=== PATIENT | male | born 1955 | race Caucasian/White ===

== ENCOUNTER 2016-12-25 11:00 | Emergency (ER) ==
[2016-12-25] MEDS ORDERED: PHENERGAN IV ONE (11:22)
[2016-12-25] MEDS ORDERED: SODIUM CHLORIDE 0.9% INJ ONE (11:22)
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
[2016-12-25 11:44] LABS: MANUAL DIFF NEEDED? NO
[2016-12-25 11:46] LABS: BASO% 0.1 % (0.0-0.8); EOS# 0.05 X1000 (0.0-0.7); EOS% 0.4 % (0.0-10.0); HEMATOCRIT 42.9 % (42.0-52.0); HEMOGLOBIN 14.7 g/dL (14.0-18.0); IMM GRAN# 0.04 X1000 (0.0-0.04); IMM GRAN% 0.3 % (0.0-0.5); LYMPH# 1.26 X1000 (1.2-3.4); LYMPH% 10.3 % (20.5-51.1); MCH 29.1 PG (27-31); MCHC 34.3 g/dL (33-37); MCV 84.8 FL (81-99); MONO# 0.71 X1000 (0.11-0.59); MONO% 5.8 % (1.7-9.3); MPV 9.1 FL (7.4-10.4); NEUT% 83.1 % (42.2-75.2); PLT 262 X1000 (130-400); RBC 5.06 XMIL (4.7-6.1)
[2016-12-25 12:11] LABS: AGAP 11; ALKALINE PHOSPHATASE 56 U/L (32-122); BUN 8 mg/dL (8-22); CALCIUM 9.1 mg/dL (8.8-10.2); CHLORIDE 104 mmol/L (98-107); CK PROFILE 51 U/L (24-204); COSMO 281; GOT 16 U/L (10-34); GPT 14 U/L (10-44); POTASSIUM 3.6 mmol/L (3.5-5.1); SODIUM 140 mmol/L (136-145); TCO2 25 mmol/L (25-35); TOTAL PROTEIN 6.6 g/dL (6.3-8.3)
[2016-12-25] MEDS ORDERED: TYLENOL PO ONE (12:58)
--- NOTE | 2016-12-25 12:58 | EKG Report ---
Test Performed on : 12/25/2016 11:40:11 AM Test Reason : emboli Blood Pressure : / mmHG Vent. Rate : 103 BPM Atrial Rate : 103 BPM P-R Int : 192 ms QRS Dur : 086 ms QT Int : 372 ms P-R-T Axes : 058 -63 065 degrees QTc Int : 487 ms Sinus tachycardia. Possible Left atrial enlargement Left axis deviation Septal infarct (cited on or before 16-DEC-2016) Abnormal ECG When compared with ECG of 16-DEC-2016 09:24, Questionable change in initial forces of Septal leads Unconfirmed Result
--- NOTE | 2016-12-25 13:33 | Diag Imaging Result Document ---
PROCEDURE NAME: FLAT/UPRIGHT ABD/1 VIEW CHEST - 12/25/2016 ABDOMINAL SERIES: FINDINGS: There is gas visible in nondistended small bowel. There is gas and retained fecal debris visible in mostly nondistended colon. There is no free air identified. Upright chest compared 12/16/2016 and shows within normal limits heart size. There is transvenous cardiac pacemaker again seen. There is residual or recurrent mild prominence of left infrahilar markings. There is no pleural effusion or pneumothorax seen. IMPRESSION: 1. Nonspecific bowel gas pattern. 2. Mild prominence of left infrahilar markings.
[2016-12-25 14:25] LABS: URINE SOURCE VOIDED
[2016-12-25 14:33] LABS: BILIRUBIN URINE NEGATIVE (NEGATIVE); BLOOD URINE NEGATIVE (NEGATIVE); CLARITY CLEAR (CLEAR); COLOR YELLOW; GLUCOSE URINE NEGATIVE (NEGATIVE); LEUKOCYTES URINE TRACE (NEGATIVE); NITRITE URINE NEGATIVE (NEGATIVE); PH URINE 6.5; PROTEIN URINE TRACE mg/dL (NEGATIVE); SP GRAVITY URINE 1.015; UROBILINOGEN URINE NORMAL
[2016-12-25 14:43] VITALS: BP 161/90
== END 2016-12-25 14:49 | disposition home or self-care (01) ==
LOC: P.ED 11:00
DX: R11.2 Nausea with vomiting, unspecified (principal); R10.30 Lower abdominal pain, unspecified; I25.10 Atherosclerotic heart disease of native coronary artery without angina pectoris; I10 Essential (primary) hypertension; E11.9 Type 2 diabetes mellitus without complications; R94.31 Abnormal electrocardiogram [ECG] [EKG]; J44.9 Chronic obstructive pulmonary disease, unspecified; Z79.899 Other long term (current) drug therapy; Z86.73 Personal history of transient ischemic attack (TIA), and cerebral infarction without residual deficits; Z95.810 Presence of automatic (implantable) cardiac defibrillator; Z79.51 Long term (current) use of inhaled steroids; Z83.3 Family history of diabetes mellitus
CPT/HCPCS: 36415; 74022; 80053; 81003; 82550; 82948; 84484; 85025; 93005; J2550